=== PATIENT | male | born 2000 | race Caucasian/White ===

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

== ENCOUNTER → 2022-07-10 11:40 | Outpatient (CLI) | payer BC, SELFPAY ==
--- NOTE | 2022-07-10 11:44 | DI.MRI.S_ITS ---
PROCEDURE: MR CERVICAL SPINE WO CON INDICATIONS: Radiculopathy, cervical region Pain right shoulder TECHNIQUE: Noncontrast sagittal T1 spin echo and T2 fast spin echo, sagittal STIR, foraminal oblique sagittal T2 fast spin echo, and axial gradient echo or T2 fast spin echo through the cervical spine. COMPARISON: None. FINDINGS: Image quality: Excellent. Alignment and Curvature: There is loss of normal cervical lordosis. Bone Marrow: Marrow demonstrates normal overall signal. Spinal Cord: Visualized spinal cord has normal size and signal. No cerebellar tonsillar herniation. Paraspinous Soft Tissues: No paravertebral masses. Prevertebral soft tissues are normal in thickness. C2-C3: Normal appearance. C3-C4: Mild disc desiccation. No significant canal nor foraminal stenosis. C4-C5: Normal appearance. C5-C6: Normal appearance. C6-C7: Normal appearance. C7-T1: Normal appearance. IMPRESSION: 1. Loss of normal cervical lordosis, suggestive of muscle spasm. 2. No significant canal or foraminal stenosis. No neural impingement. Dictated by: Italia Palmer M.D. on 07/10/2022 at 12:05 Transcribed by: ALEXANDRA on 07/10/2022 at 12:06 Approved by: Italia Palmer M.D. on 07/10/2022 at 15:34
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
== END ==
PROVIDERS: PCP Family Medicine; Referring Provider Family Medicine; Visit Provider Family Medicine
DX: M54.12 Radiculopathy, cervical region (principal); M25.511 Pain in right shoulder; M75.111 Incomplete rotator cuff tear or rupture of right shoulder, not specified as traumatic
CPT/HCPCS: 72141; 73221

== ENCOUNTER 2022-10-10 20:49 | Emergency (ER) | payer BC, SELFPAY ==
[2022-10-10 20:57] VITALS: BP 111/85; PULSE 97; RESP 18; TEMP 37.1; O2SAT 98; BMI 22.8
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
[2022-10-10] MEDS: BACITRACIN OINT 0.9 GM PCKT 6 APPLIC TOP (22:51)
[2022-10-10 22:52] VITALS: BP 120/66; PULSE 88; RESP 16; O2SAT 99
== END 2022-10-10 22:54 | disposition home or self-care (01) ==
PROVIDERS: Emergency Provider Emergency Medicine; PCP Family Medicine
DX: S93.401A Sprain of unspecified ligament of right ankle, initial encounter (principal); M79.652 Pain in left thigh; V29.408A Other motorcycle driver injured in collision with unspecified motor vehicles in traffic accident, initial encounter
CPT/HCPCS: 73552; 73562; 73610; 99283

== ENCOUNTER → 2023-03-10 13:48 | Outpatient (CLI) | payer BC, SELFPAY ==
--- NOTE | 2023-03-10 13:49 | DI.RAD.S_ITS ---
PROCEDURE: XR ANKLE LT MIN 3V INDICATIONS: Left ankle pain TECHNIQUE: 3 views of the ankle were acquired. COMPARISON: [facility], CR, XR ANKLE RT MIN 3V, 10/10/2022, 21:13. FINDINGS: Bones: No fractures or dislocations. Ankle mortise is normally aligned on nonweightbearing view. No suspicious bony lesions. Soft tissues: No tibiotalar joint effusion. Achilles tendon appears normal. IMPRESSION: No acute bony abnormality or significant effusion. If pain persists, consider repeat imaging in 7-10 days to exclude an occult fracture. Dictated by: Abdulaziz To M.D. on 03/10/2023 at 21:33 Approved by: Abdulaziz To M.D. on 03/10/2023 at 21:34
== END ==
PROVIDERS: PCP Family Medicine; Referring Provider Nurse Practitioner Family; Visit Provider Nurse Practitioner Family
DX: S96.912A Strain of unspecified muscle and tendon at ankle and foot level, left foot, initial encounter (principal)
CPT/HCPCS: 73610